=== PATIENT | male | born 1960 | race Two or more races ===

== ENCOUNTER 2016-09-08 17:42 | Inpatient (IN) | payer BC ==
[2016-09-08 19:01] VITALS: BMI 24.2
--- NOTE | 2016-09-08 20:57 | HP ---
CIWA Score - CIWA Score Nausea/Vomitin-No Nausea/No Vomiting Muscle Tremors: 4-Moderate,w/Arms Extend Anxiety: 4-Mod. Anxious/Guarded Agitation: 3 Paroxysmal Sweats: 2 Orientation: 1-Uncertain about Date Tacttile Disturbances: 0-None Auditory Disturbances: 0-None Visual Disturbances: 0-None Headache: 2-Mild CIWA-Ar Total Score: 16 Admission ROS S - HPI Chief Complaint: WITHDRAWAL SYMPTOMS Allergies/Adverse Reactions: Allergies Allergy/AdvReac Type Severity Reaction Status Date / Time No Known Allergies Allergy Verified 09/08/16 20:33 History of Present Illness: 56 Y.O. MAN WITH AN EXTENSIVE HISTORY OF DRUG AND ALCOHOL DEPENDENCE IS SEEKING DETOX. HE HAS BEEN TO REHAB AND DETOX AT OTHER FACILITIES BUT HAS NEVER COMPLETED TREATMENT. THIS IS HIS FIRST ADMISSION TO [facility]. HE IS ALSO ENROLLED IN A MMTP. Exam Limitations: Intoxication - Ebola screening Have you traveled outside of the country in the last 21 days: No Have you had contact with anyone from an Ebola affected area: No Have you been sick,other than usual withdrawal symptoms: No Do you have a fever: No - Review of Systems Constitutional: No Symptoms Reported EENT: reports: Double Vision, Dental Problems (MISSING TEETH) Respiratory: reports: No Symptoms reported Cardiac: reports: No Symptoms Reported GI: reports: No Symptoms Reported : reports: No Symptoms Reported Musculoskeletal: reports: No Symptoms Reported Integumentary: reports: No Symptoms Reported Neuro: reports: Headache Endocrine: reports: No Symptoms Reported Hematology: reports: No Symptoms Reported Psychiatric: reports: Anxious Other Systems: Reviewed and Negative (H/O BIPOLAR & SCHIZOPHRENIA) Patient History - Patient Medical History Hx Anemia: No Hx Asthma: No Hx Chronic Obstructive Pulmonary Disease (COPD): No Hx Cancer: No Hx Cardiac Disorders: No Hx Congestive Heart Failure: No Hx Hypertension: No Hx Hypercholesterolemia: No HX Cerebrovascular Accident: No Hx Seizures: No Hx Diabetes: No Hx Gastrointestinal Disorders: Yes (DYSPEPSIA ) Hx Liver Disease: No Hx Genitourinary Disorders: No Hx Sexually Transmitted Disorders: No Hx Renal Disease (ESRD): No Hx Thyroid Disease: No Hx Human Immunodeficiency Virus (HIV): No Hx Hepatitis C: No Hx Depression: Yes Hx Suicide Attempt: No Hx Bipolar Disorder: Yes Hx Schizophrenia: Yes - Patient Surgical History Past Surgical History: No - PPD History Previous Implant?: Yes Documented Results: Negative w/o proof PPD to be Administered?: Yes - Reproductive History Patient is a Female of Child Bearing Age (11 -55 yrs old): No - Smoking Cessation Smoking history: Current every day smoker Have you smoked in the past 12 months: Yes Aproximately how many cigarettes per day: 20 Hx Chewing Tobacco Use: No Initiated information on smoking cessation: Yes 'Breaking Loose' booklet given: 09/08/16 - Substance & Tx. History Hx Alcohol Use: Yes Hx Substance Use: Yes Substance Use Type: Alcohol, Cocaine Hx Substance Use Treatment: Yes (DETOX AND REHAB ) - Substances Abused Alcohol Route: Oral Frequency: Daily Amount used: vodka 2 pints Age of first use: 23 Date of Last Use: 09/08/16 Marijuana/Hashish Route: Smoking Frequency: Daily Amount used: 1/2 blunt Age of first use: 17 Date of Last Use: 09/08/16 Family Disease History - Family Disease History Family Disease History: Heart Disease: Father, CA: Sister (BR CA-DECASED ) Admission Physical Exam [facility] - Vital Signs Vital Signs: Vital Signs - 24 hr 09/08/16 19:00 Temperature 99.2 F Pulse Rate 89 Respiratory 20 Rate Blood Pressure 104/58 - Physical General Appearance: Yes: Disheveled, Tremorous HEENTM: Yes: Hearing grossly Normal, Normocephalic, Normal Voice Respiratory: Yes: Chest Non-Tender, Lungs Clear, Normal Breath Sounds Neck: Yes: No masses,lesions,Nodules Breast: Yes: Breast Exam Deferred Cardiology: Yes: Regular Rhythm, Regular Rate, S1, S2 Abdominal: Yes: Flat, Soft Genitourinary: Yes: Other (NO COMPLAINTS REPORTED) Back: Yes: Normal Inspection Musculoskeletal: Yes: full range of Motion, Gait Steady Extremities: Yes: Normal Capillary Refill, Normal Inspection, Normal Range of Motion, Non-Tender Neurological: Yes: Alert, Normal Response Integumentary: Yes: Normal Color, Dry, Warm Lymphatic: Yes: Within Normal Limits - Diagnostic (1) Alcohol dependence with uncomplicated withdrawal Current Visit: Yes Status: Chronic (2) Cannabis dependence, uncomplicated Current Visit: Yes Status: Chronic (3) Opioid dependence on agonist therapy Current Visit: Yes Status: Chronic (4) Nicotine dependence Current Visit: Yes Status: Chronic Cleared for Admission [facility] - Detox or Rehab [facility] Level of Care: Medically Managed [facility]ox [facility]ath Alcohol Content Breath Alcohol Content: 0 Urine Drug Screen - Results Drug Screen Negative: No Urine Drug Screen Results: THC-Marijuana, BZO-Benzodiazepines, MTD-Methadone
[2016-09-08] MEDS ORDERED: ACETAMINOPHEN 325 MG TABLET (FP) PO PRN (21:07)
[2016-09-08] MEDS ORDERED: NICOTINE POLACRILEX 4 MG GUM BC PRN (21:07)
[2016-09-08] MEDS ORDERED: P-EPHED 60MG/TRIPROLIDI 2.5MG TABLET PO PRN (21:07)
[2016-09-08] MEDS ORDERED: MAG HYDROX/AL HYDROX/SIMETH 30 ML UNIT-DOSE CUP PO PRN (21:07)
[2016-09-08] MEDS ORDERED: MAGNESIUM HYDROX 2400MG/30ML ORAL SUSPENSION 30 ML CUP PO PRN (21:07)
[2016-09-08] MEDS ORDERED: LOPERAMIDE HCL 2 MG CAPSULE PO PRN (21:07)
[2016-09-08] MEDS ORDERED: hydrOXYzine PAMOATE 50 MG CAPSULE (FP) PO PRN (21:07)
[2016-09-08] MEDS ORDERED: chlordiazePOXIDE HCL 25 MG CAPSULE PO ONE (21:07)
[2016-09-08] MEDS ORDERED: MAGNESIUM CITRATE 300 ML BOTTLE PO PRN (21:07)
[2016-09-08] MEDS ORDERED: guaiFENesin/D-METHORPHAN HB 10 ML UNIT-DOSE CUPS PO PRN (21:07)
[2016-09-08] MEDS ORDERED: IBUPROFEN 400 MG TABLET (FP) PO PRN (21:07)
[2016-09-08] MEDS ORDERED: MENTHOL/PHENOL 1 EACH UD MM PRN (21:07)
[2016-09-08] MEDS ORDERED: chlordiazePOXIDE HCL 25 MG CAPSULE PO PRN (21:07)
[2016-09-08] MEDS: diphenhydrAMINE HCL 50 MG CAPSULE PO PRN (23:24)
[2016-09-08] MEDS: THIAMINE HCL 100 MG TABLET (FP) PO SCH (23:25)
[2016-09-08] MEDS: chlordiazePOXIDE HCL 25 MG CAPSULE PO SCH (23:35)
[2016-09-08 23:39] LABS: URINE APPEARANCE CLEAR; URINE BILIRUBIN NEGATIVE (NEGATIVE); URINE BLOOD NEGATIVE (NEGATIVE); URINE COLOR YELLOW; URINE GLUCOSE (UA) NEGATIVE (NEGATIVE); URINE KETONE NEGATIVE (NEGATIVE); URINE LEUK ESTERASE NEGATIVE (NEGATIVE); URINE NITRITE NEGATIVE (NEGATIVE); URINE PROTEIN NEGATIVE (NEGATIVE); URINE UROBILINOGEN NEGATIVE E.U./dl (0.2-1.0)
[2016-09-09] MEDS: chlordiazePOXIDE HCL 25 MG CAPSULE PO SCH ×4 (05:57→22:15)
[2016-09-09] MEDS ORDERED: METHADONE HCL 40 MG DISPERSABLE TABLET PO SCH (07:45)
[2016-09-09] MEDS ORDERED: METHADONE HCL 10 MG TABLET ONE (09:25)
[2016-09-09] MEDS ORDERED: METHADONE HCL 40 MG DISPERSABLE TABLET ONE (09:25)
[2016-09-09 10:03] LABS: MCH 36.6 pg (25.7-33.7); MCHC 33.9 g/dl (32.0-35.9); MEAN PLT VOLUME 7.6 fl (7.5-11.1); PLATELET COUNT 251 K/MM3 (134-434); RDW 14.6 % (11.9-15.9); WHITE BLOOD COUNT 3.5 K/mm3 (4.0-10.0)
--- NOTE | 2016-09-09 10:10 | PN ---
S CIWA - CIWA Score Nausea/Vomitin-No Nausea/No Vomiting Muscle Tremors: 4-Moderate,w/Arms Extend Anxiety: 3 Agitation: 3 Paroxysmal Sweats: 3 Orientation: 0-Oriented Tacttile Disturbances: 0-None Auditory Disturbances: 0-None Visual Disturbances: 0-None Headache: 0-None Present CIWA-Ar Total Score: 13 S Progress Note (SOAP) Subjective: Anxiety,tremors,sweating,interrupted sleep,restless Objective: 09/09/16 10:09 Vital Signs - 8 hr 09/09/16 09/09/16 09/09/16 03:31 06:22 09:11 Temperature 97.2 F L 98.4 F Pulse Rate 70 75 Respiratory 18 18 18 Rate Blood Pressure 114/69 113/76 Laboratory Tests 09/08/16 09/09/16 23:00 07:00 WBC 3.5 L RBC 3.39 L Hgb 12.4 Hct 36.7 MCV 108.0 H MCHC 33.9 RDW 14.6 Plt Count 251 MPV 7.6 Urine Color Yellow Urine Appearance Clear Urine pH 5.0 Ur Specific [place] 1.025 Urine Protein Negative Urine Glucose (UA) Negative Urine Ketones Negative Urine Blood Negative Urine Nitrite Negative Urine Bilirubin Negative Urine Urobilinogen Negative Ur Leukocyte Esterase Negative labs noted Assessment: 09/09/16 10:10 Withdrawal sx. Plan: Continue detox
[2016-09-09] MEDS: PRENATAL VITAMINS W/ FOLIC ACID TABLET (FP) PO SCH (10:20)
[2016-09-09] MEDS: METHADONE 40 MG, METHADONE 30 MG PO SCH (10:21)
[2016-09-09 10:28] LABS: ALBUMIN 3.4 g/dl (3.4-5.0); ALK PHOS 60 U/L (45-117); ANION GAP 9 (8-16); BILIRUBIN,TOTAL 0.5 mg/dL (0.2-1.0); CALCIUM 8.8 mg/dL (8.5-10.1); CO2 28 mmol/L (21-32); CREATININE 0.8 mg/dL (0.7-1.3); GLUCOSE,RANDOM 93 mg/dL (74-106); SGOT/AST 21 U/L (15-37); SGPT/ALT 21 U/L (12-78)
[2016-09-09] MEDS: NICOTINE 21 MG/24 HOURS TOPICAL PATCH TD SCH (10:53)
--- NOTE | 2016-09-09 16:26 | EKG ---
Test Reason : Blood Pressure : / mmHG Vent. Rate : 089 BPM Atrial Rate : 089 BPM P-R Int : 122 ms QRS Dur : 094 ms QT Int : 376 ms P-R-T Axes : 071 064 058 degrees QTc Int : 457 ms NORMAL SINUS RHYTHM VOLTAGE CRITERIA FOR LEFT VENTRICULAR HYPERTROPHY ABNORMAL ECG NO PREVIOUS ECGS AVAILABLE Confirmed by GENEVA BARBOSA MD ([id number]) on 09/09/2016 4:26:13 PM Referred By: Confirmed By:GENEVA BARBOSA MD
--- NOTE | 2016-09-09 18:08 | CONSULT ---
[facility] Psychiatric Consult - Data Date of interview: 09/09/16 Admission source: [facility] Identifying data: First admision to [facility] for this 56 y/o male seeking detox for alcohol,cocaine and marijuana dependence.Patient is in a common-law relationship,a father of three,domiciled,unemployed and supported on Public Assistance. Substance Abuse History: - Smoking Cessation. Smoking history: Current every day smoker. Have you smoked in the past 12 months: Yes. Aproximately how many cigarettes per day: 20. Hx Chewing Tobacco Use: No. Initiated information on smoking cessation: Yes. 'Breaking Loose' booklet given: 09/08/16. - Substance & Tx. History. Hx Alcohol Use: Yes. Hx Substance Use: Yes. Substance Use Type : Alcohol, Cocaine. Hx Substance Use Treatment: Yes (DETOX AND REHAB ). - Substances Abused. Alcohol. Route: Oral. Frequency: Daily. Amount used: vodka 2 pints. Age of first use: 23. Date of Last Use: 09/08/16. Marijuana /Hashish. Route: Smoking. Frequency: Daily. Amount used: 1/2 blunt. Age of first use: 17. Date of Last Use: 09/08/16. Confirmed by patient. Urine Drug Screen Results: THC-Marijuana, BZO-Benzodiazepines, MTD-Methadone.Noted. Medical History: Patient endorses good general health. Psychiatric History: Patient admits to a remote history of psychiatric hospitalizations (age 12) for behavioural issues.Currently on methadone maintenance (80 mg/day) at the [facility] program in [facility].Mr Saul denies history of suicide attempts. Physical/Sexual Abuse/Trauma History: Patient denies. Mental Status Exam - Mental Status Exam Alert and Oriented to: Time, Place, Person Cognitive Function: Good Patient Appearance: Well Groomed Mood: Hopeful, Euthymic Affect: Appropriate, Normal Range Patient Behavior: Appropriate, Cooperative Speech Pattern: Clear, Appropriate Voice Loudness: Normal Thought Process: Goal Oriented Thought Disorder: Not Present Hallucinations: Denies Suicidal Ideation: Denies Homicidal Ideation: Denies Insight/Judgement: Fair Sleep: Well Appetite: Good Muscle strength/Tone: Normal Gait/Station: Normal Psychiatric Findings - Problem List ([place] 1, 2,3) (1) Alcohol dependence with uncomplicated withdrawal Current Visit: Yes Status: Acute (2) Cannabis dependence, uncomplicated Current Visit: Yes Status: Acute (3) Opioid dependence on agonist therapy Current Visit: Yes Status: Acute (4) Uncomplicated opioid dependence Current Visit: Yes Status: Acute (5) Nicotine dependence Current Visit: Yes Status: Acute - Initial Treatment Plan Initial Treatment Plan: Psychoeducation.Detoxification.Observation.
[2016-09-09] MEDS: THIAMINE HCL 100 MG TABLET (FP) PO SCH (22:14)
[2016-09-09] MEDS: diphenhydrAMINE HCL 50 MG CAPSULE PO PRN (22:15)
[2016-09-10] MEDS ORDERED: METHADONE HCL 10 MG TABLET ONE (01:44)
[2016-09-10] MEDS ORDERED: METHADONE HCL 40 MG DISPERSABLE TABLET ONE (01:44)
[2016-09-10] MEDS: chlordiazePOXIDE HCL 25 MG CAPSULE PO SCH ×3 (05:07→17:16)
[2016-09-10] MEDS: METHADONE 40 MG, METHADONE 30 MG PO SCH (05:07)
[2016-09-10] MEDS: NICOTINE 21 MG/24 HOURS TOPICAL PATCH TD SCH (10:08)
[2016-09-10] MEDS: PRENATAL VITAMINS W/ FOLIC ACID TABLET (FP) PO SCH (10:08)
--- NOTE | 2016-09-10 10:35 | PN ---
S CIWA - CIWA Score Nausea/Vomitin-No Nausea/No Vomiting Muscle Tremors: 4-Moderate,w/Arms Extend Anxiety: 4-Mod. Anxious/Guarded Agitation: 4-Moderately Restless Paroxysmal Sweats: 1-Minimal Palms Moist Orientation: 0-Oriented Tacttile Disturbances: 3-Moderate Itch/Numb/Burn Auditory Disturbances: 0-None Visual Disturbances: 0-None Headache: 2-Mild CIWA-Ar Total Score: 18 BHS COWS - Scale Resting Pulse: 0= CT 80 or Below Sweatin= Chills/Flushing Restless Observation: 3= Extraneous Movement Pupil Size: 2= Moderately Dilated Bone or Joint Aches: 4=Acute Joint/Muscle Pain Runny Nose/ Eye Tearin= Nasal Congestion GI Upset > 30mins: 1= Stomach Cramp Tremor Observation of Outstretched Hands: 2= Slight Tremor Visible Yawning Observation: 2= >3x During Session Anxiety or Irritability: 2=Irritable/Anxious Goose Flesh Skin: 0=Smooth Skin COWS Score: 18 S Progress Note (SOAP) Subjective: ANXIETY,SWEATS,TREMORS, INTERMITTENT SLEEP. Objective: 09/10/16 10:38 Vital Signs Temperature 96.0 F L 09/10/16 09:59 Pulse Rate 61 09/10/16 09:59 Respiratory Rate 18 09/10/16 09:59 Blood Pressure 131/81 09/10/16 09:59 O2 Sat by Pulse Oximetry (%) Laboratory Last Values WBC 3.5 K/mm3 (4.0-10.0) L 09/09/16 07:00 RBC 3.39 M/mm3 (4.00-5.60) L 09/09/16 07:00 Hgb 12.4 GM/dL (11.7-16.9) 09/09/16 07:00 Hct 36.7 % (35.4-49) 09/09/16 07:00 MCV 108.0 fl (80-96) H 09/09/16 07:00 MCHC 33.9 g/dl (32.0-35.9) 09/09/16 07:00 RDW 14.6 % (11.9-15.9) 09/09/16 07:00 Plt Count 251 K/MM3 (134-434) 09/09/16 07:00 MPV 7.6 fl (7.5-11.1) 09/09/16 07:00 Sodium 139 mmol/L (136-145) 09/09/16 07:00 Potassium 4.1 mmol/L (3.5-5.1) 09/09/16 07:00 Chloride 102 mmol/L (98-107) 09/09/16 07:00 Carbon Dioxide 28 mmol/L (21-32) 09/09/16 07:00 Anion Gap 9 (8-16) 09/09/16 07:00 BUN 22 mg/dL (7-18) H 09/09/16 07:00 Creatinine 0.8 mg/dL (0.7-1.3) 09/09/16 07:00 Creat Clearance w eGFR > 60 (>60) 09/09/16 07:00 Random Glucose 93 mg/dL (74-106) 09/09/16 07:00 Calcium 8.8 mg/dL (8.5-10.1) 09/09/16 07:00 Total Bilirubin 0.5 mg/dL (0.2-1.0) 09/09/16 07:00 AST 21 U/L (15-37) 09/09/16 07:00 ALT 21 U/L (12-78) 09/09/16 07:00 Alkaline Phosphatase 60 U/L (45-117) 09/09/16 07:00 Total Protein 7.0 g/dl (6.4-8.2) 09/09/16 07:00 Albumin 3.4 g/dl (3.4-5.0) 09/09/16 07:00 Urine Color Yellow 09/08/16 23:00 Urine Appearance Clear 09/08/16 23:00 Urine pH 5.0 (5.0-8.0) 09/08/16 23:00 Ur Specific [place] 1.025 (1.001-1.035) 09/08/16 23:00 Urine Protein Negative (NEGATIVE) 09/08/16 23:00 Urine Glucose (UA) Negative (NEGATIVE) 09/08/16 23:00 Urine Ketones Negative (NEGATIVE) 09/08/16 23:00 Urine Blood Negative (NEGATIVE) 09/08/16 23:00 Urine Nitrite Negative (NEGATIVE) 09/08/16 23:00 Urine Bilirubin Negative (NEGATIVE) 09/08/16 23:00 Urine Urobilinogen Negative E.U./dl (0.2-1.0) 09/08/16 23:00 Ur Leukocyte Esterase Negative (NEGATIVE) 09/08/16 23:00 RPR Titer Nonreactive (NONREACTIVE) 09/09/16 07:00 Assessment: 09/10/16 10:39 WITHDRAWAL SX Plan: CONTINUE DETOX
[2016-09-10] MEDS: THIAMINE HCL 100 MG TABLET (FP) PO SCH (22:13)
[2016-09-10] MEDS: chlordiazePOXIDE 5 MG CAPSULE PO SCH (22:13)
[2016-09-10] MEDS: diphenhydrAMINE HCL 50 MG CAPSULE PO PRN (22:13)
[2016-09-11] MEDS ORDERED: METHADONE HCL 10 MG TABLET ONE (04:43)
[2016-09-11] MEDS ORDERED: METHADONE HCL 40 MG DISPERSABLE TABLET ONE (04:43)
[2016-09-11] MEDS: chlordiazePOXIDE 5 MG CAPSULE PO SCH ×3 (05:24→17:20)
[2016-09-11] MEDS: METHADONE 40 MG, METHADONE 30 MG PO SCH (05:24)
[2016-09-11] MEDS: PRENATAL VITAMINS W/ FOLIC ACID TABLET (FP) PO SCH (10:08)
[2016-09-11] MEDS: NICOTINE 21 MG/24 HOURS TOPICAL PATCH TD SCH (10:08)
--- NOTE | 2016-09-11 13:49 | PN ---
BHS Progress Note (SOAP) Subjective: Sweating,interrupted sleep,restless Objective: 09/11/16 13:47 Vital Signs - 8 hr 09/11/16 09/11/16 06:24 09:37 Temperature 97.0 F L 95.4 F L Pulse Rate 66 72 Respiratory 16 18 Rate Blood Pressure 105/73 110/73 Laboratory Tests 09/08/16 09/09/16 09/09/16 23:00 07:00 07:00 WBC 3.5 L RBC 3.39 L Hgb 12.4 Hct 36.7 MCV 108.0 H MCHC 33.9 RDW 14.6 Plt Count 251 MPV 7.6 Sodium 139 Potassium 4.1 Chloride 102 Carbon Dioxide 28 Anion Gap 9 BUN 22 H Creatinine 0.8 Creat Clearance w eGFR > 60 Random Glucose 93 Calcium 8.8 Total Bilirubin 0.5 AST 21 ALT 21 Alkaline Phosphatase 60 Total Protein 7.0 Albumin 3.4 Urine Color Yellow Urine Appearance Clear Urine pH 5.0 Ur Specific [place] 1.025 Urine Protein Negative Urine Glucose (UA) Negative Urine Ketones Negative Urine Blood Negative Urine Nitrite Negative Urine Bilirubin Negative Urine Urobilinogen Negative Ur Leukocyte Esterase Negative RPR Titer 09/09/16 07:00 WBC RBC Hgb Hct MCV MCHC RDW Plt Count MPV Sodium Potassium Chloride Carbon Dioxide Anion Gap BUN Creatinine Creat Clearance w eGFR Random Glucose Calcium Total Bilirubin AST ALT Alkaline Phosphatase Total Protein Albumin Urine Color Urine Appearance Urine pH Ur Specific [place] Urine Protein Urine Glucose (UA) Urine Ketones Urine Blood Urine Nitrite Urine Bilirubin Urine Urobilinogen Ur Leukocyte Esterase RPR Titer Nonreactive labs noted Assessment: 09/11/16 13:48 Withdrawal sx. Plan: Continue detox
[2016-09-11] MEDS: diphenhydrAMINE HCL 50 MG CAPSULE PO PRN (22:16)
[2016-09-11] MEDS: chlordiazePOXIDE HCL 10 MG CAPSULE PO SCH (22:16)
[2016-09-11] MEDS: THIAMINE HCL 100 MG TABLET (FP) PO SCH (22:16)
[2016-09-12] MEDS ORDERED: METHADONE HCL 40 MG DISPERSABLE TABLET ONE (04:53)
[2016-09-12] MEDS ORDERED: METHADONE HCL 10 MG TABLET ONE (04:53)
[2016-09-12] MEDS: chlordiazePOXIDE HCL 10 MG CAPSULE PO SCH ×2 (05:46→10:09)
[2016-09-12] MEDS: METHADONE 40 MG, METHADONE 30 MG PO SCH (05:46)
[2016-09-12 09:26] VITALS: BP 106/71; PULSE 73; TEMP 98.1
--- NOTE | 2016-09-12 09:37 | DS ---
[facility] Detox Discharge Summary Admission Date: 09/08/16 Discharge Date: 09/12/16 - History Present History: Alcohol Dependence, Cannabis Dependence, MMTP Pertinent Past History: Denies - Physical Exam Results Vital Signs: Vital Signs Temperature 98.1 F 09/12/16 09:26 Pulse Rate 73 09/12/16 09:26 Respiratory Rate 18 09/12/16 09:26 Blood Pressure 106/71 09/12/16 09:26 O2 Sat by Pulse Oximetry (%) Pertinent Admission Physical Exam Findings: Withdrawal Sx. Laboratory Last Values WBC 3.5 K/mm3 (4.0-10.0) L 09/09/16 07:00 RBC 3.39 M/mm3 (4.00-5.60) L 09/09/16 07:00 Hgb 12.4 GM/dL (11.7-16.9) 09/09/16 07:00 Hct 36.7 % (35.4-49) 09/09/16 07:00 MCV 108.0 fl (80-96) H 09/09/16 07:00 MCHC 33.9 g/dl (32.0-35.9) 09/09/16 07:00 RDW 14.6 % (11.9-15.9) 09/09/16 07:00 Plt Count 251 K/MM3 (134-434) 09/09/16 07:00 MPV 7.6 fl (7.5-11.1) 09/09/16 07:00 Sodium 139 mmol/L (136-145) 09/09/16 07:00 Potassium 4.1 mmol/L (3.5-5.1) 09/09/16 07:00 Chloride 102 mmol/L (98-107) 09/09/16 07:00 Carbon Dioxide 28 mmol/L (21-32) 09/09/16 07:00 Anion Gap 9 (8-16) 09/09/16 07:00 BUN 22 mg/dL (7-18) H 09/09/16 07:00 Creatinine 0.8 mg/dL (0.7-1.3) 09/09/16 07:00 Creat Clearance w eGFR > 60 (>60) 09/09/16 07:00 Random Glucose 93 mg/dL (74-106) 09/09/16 07:00 Calcium 8.8 mg/dL (8.5-10.1) 09/09/16 07:00 Total Bilirubin 0.5 mg/dL (0.2-1.0) 09/09/16 07:00 AST 21 U/L (15-37) 09/09/16 07:00 ALT 21 U/L (12-78) 09/09/16 07:00 Alkaline Phosphatase 60 U/L (45-117) 09/09/16 07:00 Total Protein 7.0 g/dl (6.4-8.2) 09/09/16 07:00 Albumin 3.4 g/dl (3.4-5.0) 09/09/16 07:00 Urine Color Yellow 09/08/16 23:00 Urine Appearance Clear 09/08/16 23:00 Urine pH 5.0 (5.0-8.0) 09/08/16 23:00 Ur Specific [place] 1.025 (1.001-1.035) 09/08/16 23:00 Urine Protein Negative (NEGATIVE) 09/08/16 23:00 Urine Glucose (UA) Negative (NEGATIVE) 09/08/16 23:00 Urine Ketones Negative (NEGATIVE) 09/08/16 23:00 Urine Blood Negative (NEGATIVE) 09/08/16 23:00 Urine Nitrite Negative (NEGATIVE) 09/08/16 23:00 Urine Bilirubin Negative (NEGATIVE) 09/08/16 23:00 Urine Urobilinogen Negative E.U./dl (0.2-1.0) 09/08/16 23:00 Ur Leukocyte Esterase Negative (NEGATIVE) 09/08/16 23:00 RPR Titer Nonreactive (NONREACTIVE) 09/09/16 07:00 labs noted - Treatment Hospital Course: Detox Protocol Followed, Detoxed Safely, Responded well, Discharged Condition Good, Rehab Referral Accepted Patient has Accepted a Rehab Referral to: [facility] - Medication Discharge Medications: Ambulatory Orders NK [No Known Home Medication] 09/08/16 - Diagnosis (1) Alcohol dependence with uncomplicated withdrawal Current Visit: Yes Status: Acute (2) Cannabis dependence, uncomplicated Current Visit: Yes Status: Acute (3) Nicotine dependence Current Visit: Yes Status: Acute Qualifiers: Nicotine product type: cigarettes Substance use status: uncomplicated Qualified Code(s): F17.210 - Nicotine dependence, cigarettes, uncomplicated (4) Opioid dependence on agonist therapy Current Visit: Yes Status: Acute - AMA Did Patient Leave Against Medical Advice: No
[2016-09-12] MEDS: NICOTINE 21 MG/24 HOURS TOPICAL PATCH TD SCH (10:09)
[2016-09-12] MEDS: PRENATAL VITAMINS W/ FOLIC ACID TABLET (FP) PO SCH (10:09)
== END 2016-09-12 11:51 | disposition other institution (70) | DRG 773 ==
LOC: YASAS 17:42 → Y3N 20:53
PROVIDERS: ADMIT Internal Medicine; ATTEND Internal Medicine
PROC: HZ2ZZZZ Detoxification Services for Substance Abuse Treatment (ICD-10-PCS; principal; 2016-09-12)
DX: F11.20 Opioid dependence, uncomplicated (principal); F10.230 Alcohol dependence with withdrawal, uncomplicated; F12.20 Cannabis dependence, uncomplicated; F17.210 Nicotine dependence, cigarettes, uncomplicated
CPT/HCPCS: 36415; 80053; 81003; 85027; 86593; 93005; 93010

== ENCOUNTER 2016-09-12 12:27 | Inpatient (IN) | payer BC ==
[2016-09-12] MEDS ORDERED: NICOTINE POLACRILEX 4 MG GUM BUC PRN (12:46)
[2016-09-12] MEDS ORDERED: MAGNESIUM HYDROX 2400MG/30ML ORAL SUSPENSION 30 ML CUP PO PRN (12:46)
[2016-09-12] MEDS ORDERED: P-EPHED 60MG/TRIPROLIDI 2.5MG TABLET PO PRN (12:46)
[2016-09-12] MEDS ORDERED: ACETAMINOPHEN 325 MG TABLET (FP) PO PRN (12:46)
[2016-09-12] MEDS ORDERED: MAGNESIUM CITRATE 300 ML BOTTLE PO PRN (12:46)
[2016-09-12] MEDS ORDERED: guaiFENesin/D-METHORPHAN HB 10 ML UNIT-DOSE CUPS PO PRN (12:46)
[2016-09-12] MEDS ORDERED: MENTHOL/PHENOL 1 EACH UD MM PRN (12:46)
[2016-09-12] MEDS ORDERED: IBUPROFEN 400 MG TABLET (FP) PO PRN (12:46)
--- NOTE | 2016-09-12 12:49 | HP ---
[facility] Rehab Assess/Revision - Admission History Admitted to Rehab from: [facility] Date of Admission to Rehab: 09/12/16 - Vital signs Vital Signs: Vital Signs - 24 hr 09/13/16 09/13/16 09/13/16 00:34 03:30 06:45 Temperature 97.9 F Pulse Rate 65 Respiratory 18 18 18 Rate Blood Pressure 109/72 - Findings Detox History & Physical reviewed: Yes Concur with findings: Yes
[2016-09-12 13:47] VITALS: BMI 25.1
[2016-09-12] MEDS: diphenhydrAMINE HCL 50 MG CAPSULE PO PRN (21:17)
[2016-09-12] MEDS: THIAMINE HCL 100 MG TABLET (FP) PO SCH (21:17)
[2016-09-13] MEDS ORDERED: METHADONE HCL 10 MG TABLET PO SCH (07:30)
[2016-09-13] MEDS ORDERED: METHADONE 40 MG, METHADONE 30 MG PO SCH (08:07)
[2016-09-13] MEDS ORDERED: METHADONE HCL 10 MG TABLET ONE (08:25)
[2016-09-13] MEDS ORDERED: METHADONE HCL 40 MG DISPERSABLE TABLET ONE (08:26)
[2016-09-13] MEDS: NICOTINE 21 MG/24 HOURS TOPICAL PATCH TD SCH (09:05)
[2016-09-13] MEDS: PRENATAL VITAMINS W/ FOLIC ACID TABLET (FP) PO SCH (09:05)
[2016-09-13 12:17] LABS: HIV 1 & 2 AB NEGATIVE; HIV 1 AGp24 NEGATIVE
--- NOTE | 2016-09-13 13:46 | HP ---
Psychiatrist Admission - Data Date of interview: 09/13/16 Admission source: 3N Identifying data: This is the first 5N inpatient rehabilitation admission for this 56 y/o male who is in a common-law relationship,a father of three , domiciled, unemployed and supported on Public Assistance. Medical History: Patient reports good general health, smokes cigarettes 1PPD. On MMTP 80 mg/daily. Psychiatric History: Patient reports was diagnosed as depression, bipolar and schizophrenia. First psychiatric contact at age of 12 to address hyperactivity, states was dmitted at [facility] for 6 months at age of 13, then attended school at [place]. Reports later was on Seroquel, Trazodone and Xanax. Reports 2 weeks ago was referred to [facility] by his methadone clinic for evaluations, states was anxious and was given "some injection" then relased back home. He reports feels depressed and sad. Physical/Sexual Abuse/Trauma History: Denies history of sexual, physical and verbal abuse. Vital Signs: Vital Signs - 24 hr 09/13/16 09/13/16 09/13/16 00:34 03:30 06:45 Temperature 97.9 F Pulse Rate 65 Respiratory 18 18 18 Rate Blood Pressure 109/72 Allergies/Adverse Reactions: Allergies Allergy/AdvReac Type Severity Reaction Status Date / Time No Known Allergies Allergy Verified 09/08/16 20:33 Date of last physical exam: 09/08/16 Concur with the findings of this exam: Yes - Substance Abuse/Tx History Hx Alcohol Use: Yes (2 pints of vodka daily) Hx Substance Use: Yes Substance Use Type: Heroin (on and off), Marijuana (daily use) Hx Substance Use Treatment: Yes - Admission Criteria Previous failed treatment: Yes Poor recovery environment: Yes Comorbidities: Yes Lacks judgement: Yes Mental Status Exam - Mental Status Exam Alert and Oriented to: Time, Place, Person Cognitive Function: Good Patient Appearance: Well Groomed Mood: Depressed, Sad Affect: Appropriate, Mood Congruent Patient Behavior: Appropriate, Cooperative Speech Pattern: Clear, Appropriate Voice Loudness: Normal Thought Process: Intact, Goal Oriented Thought Disorder: Not Present Hallucinations: Denies Suicidal Ideation: Denies Homicidal Ideation: Denies Insight/Judgement: Fair Sleep: Fair Appetite: Fair Muscle strength/Tone: Normal Gait/Station: Normal Psychiatric Findings - Problem List ([place] 1, 2,3) (1) Cannabis dependence, uncomplicated Current Visit: No Status: Acute (2) Nicotine dependence Current Visit: No Status: Acute Qualifiers: Nicotine product type: cigarettes Substance use status: uncomplicated Qualified Code(s): F17.210 - Nicotine dependence, cigarettes, uncomplicated (3) Opioid dependence on agonist therapy Current Visit: No Status: Acute (4) Alcohol dependence Current Visit: Yes Status: Acute (5) MDD (major depressive disorder) Current Visit: Yes Status: Acute - Initial Treatment Plan Initial Treatment Plan: continue Trazodone, add Lexapro 10 mg po daily, Seroquel 25 mg po hs, monitor progress as needed.
[2016-09-13] MEDS: QUEtiapine FUMARATE 25 MG TABLET (FP) PO SCH (21:07)
[2016-09-13] MEDS: THIAMINE HCL 100 MG TABLET (FP) PO SCH (21:07)
[2016-09-13] MEDS: traZODone HCL 50 MG TABLET (FP) PO SCH (21:07)
[2016-09-13] MEDS: MAG HYDROX/AL HYDROX/SIMETH 30 ML UNIT-DOSE CUP PO PRN (21:22)
[2016-09-14] MEDS ORDERED: METHADONE 40 MG, METHADONE 30 MG PO SCH (06:00)
[2016-09-14] MEDS ORDERED: METHADONE HCL 10 MG TABLET ONE (06:04)
[2016-09-14] MEDS ORDERED: METHADONE HCL 40 MG DISPERSABLE TABLET ONE (06:05)
[2016-09-14] MEDS: METHADONE 40 MG, METHADONE 30 MG PO SCH (06:32)
[2016-09-14] MEDS: LOPERAMIDE HCL 2 MG CAPSULE PO PRN ×2 (06:34→12:40)
[2016-09-14] MEDS: ESCITALOPRAM OXALATE 10 MG TABLET (FP) PO SCH (09:52)
[2016-09-14] MEDS: PRENATAL VITAMINS W/ FOLIC ACID TABLET (FP) PO SCH (09:52)
[2016-09-14] MEDS: NICOTINE 21 MG/24 HOURS TOPICAL PATCH TD SCH (09:52)
[2016-09-14] MEDS ORDERED: BISMUTH SUBSALICYLATE 262 MG/15 ML BTL PO ONE (11:49)
[2016-09-14] MEDS: BISMUTH SUBSALICYLATE 262 MG/15 ML BTL PO PRN (17:31)
[2016-09-14] MEDS: QUEtiapine FUMARATE 25 MG TABLET (FP) PO SCH (21:22)
[2016-09-14] MEDS: traZODone HCL 50 MG TABLET (FP) PO SCH (21:22)
[2016-09-14] MEDS: THIAMINE HCL 100 MG TABLET (FP) PO SCH (21:22)
[2016-09-15] MEDS ORDERED: METHADONE HCL 10 MG TABLET ONE (03:20)
[2016-09-15] MEDS ORDERED: METHADONE HCL 40 MG DISPERSABLE TABLET ONE (03:21)
[2016-09-15] MEDS: METHADONE 40 MG, METHADONE 30 MG PO SCH (06:21)
[2016-09-15] MEDS: BISMUTH SUBSALICYLATE 262 MG/15 ML BTL PO PRN ×2 (06:24→17:01)
[2016-09-15] MEDS: PRENATAL VITAMINS W/ FOLIC ACID TABLET (FP) PO SCH (10:09)
[2016-09-15] MEDS: ESCITALOPRAM OXALATE 10 MG TABLET (FP) PO SCH (10:09)
[2016-09-15] MEDS: NICOTINE 21 MG/24 HOURS TOPICAL PATCH TD SCH (10:10)
[2016-09-15] MEDS: LOPERAMIDE HCL 2 MG CAPSULE PO PRN (10:37)
--- NOTE | 2016-09-15 13:09 | PN ---
BHS Progress Note Note: Vistaril 50 mg po q 4 hrs added due to patient's increased anxiety.
[2016-09-15] MEDS: THIAMINE HCL 100 MG TABLET (FP) PO SCH (21:15)
[2016-09-15] MEDS: QUEtiapine FUMARATE 25 MG TABLET (FP) PO SCH (21:16)
[2016-09-15] MEDS: traZODone HCL 50 MG TABLET (FP) PO SCH (21:16)
[2016-09-16] MEDS ORDERED: METHADONE HCL 10 MG TABLET ONE (06:02)
[2016-09-16] MEDS ORDERED: METHADONE HCL 40 MG DISPERSABLE TABLET ONE (06:03)
[2016-09-16] MEDS: METHADONE 40 MG, METHADONE 30 MG PO SCH (06:18)
[2016-09-16] MEDS: BISMUTH SUBSALICYLATE 262 MG/15 ML BTL PO PRN ×2 (06:42→21:29)
[2016-09-16] MEDS: hydrOXYzine PAMOATE 50 MG CAPSULE (FP) PO PRN (10:11)
[2016-09-16] MEDS: ESCITALOPRAM OXALATE 10 MG TABLET (FP) PO SCH (10:11)
[2016-09-16] MEDS: PRENATAL VITAMINS W/ FOLIC ACID TABLET (FP) PO SCH (10:11)
[2016-09-16] MEDS: NICOTINE 21 MG/24 HOURS TOPICAL PATCH TD SCH (10:12)
[2016-09-16] MEDS: LOPERAMIDE HCL 2 MG CAPSULE PO PRN (17:25)
[2016-09-16] MEDS: QUEtiapine FUMARATE 25 MG TABLET (FP) PO SCH (21:29)
[2016-09-16] MEDS: THIAMINE HCL 100 MG TABLET (FP) PO SCH (21:29)
[2016-09-16] MEDS: traZODone HCL 50 MG TABLET (FP) PO SCH (21:29)
[2016-09-17] MEDS ORDERED: METHADONE HCL 40 MG DISPERSABLE TABLET ONE (03:10)
[2016-09-17] MEDS ORDERED: METHADONE HCL 10 MG TABLET ONE (03:10)
[2016-09-17] MEDS: METHADONE 40 MG, METHADONE 30 MG PO SCH (06:07)
[2016-09-17] MEDS: NICOTINE 21 MG/24 HOURS TOPICAL PATCH TD SCH (10:04)
[2016-09-17] MEDS: ESCITALOPRAM OXALATE 10 MG TABLET (FP) PO SCH (10:04)
[2016-09-17] MEDS: PRENATAL VITAMINS W/ FOLIC ACID TABLET (FP) PO SCH (10:04)
--- NOTE | 2016-09-17 10:56 | PN ---
BHS Progress Note Note: having diarrhea with loose bowel movement,stool for c diff,did not want to be on clifford diet
[2016-09-17] MEDS: THIAMINE HCL 100 MG TABLET (FP) PO SCH (21:09)
[2016-09-17] MEDS: QUEtiapine FUMARATE 25 MG TABLET (FP) PO SCH (21:10)
[2016-09-17] MEDS: traZODone HCL 50 MG TABLET (FP) PO SCH (21:10)
[2016-09-17] MEDS: BISMUTH SUBSALICYLATE 262 MG/15 ML BTL PO PRN (21:11)
[2016-09-18] MEDS ORDERED: METHADONE HCL 10 MG TABLET ONE (06:05)
[2016-09-18] MEDS ORDERED: METHADONE HCL 40 MG DISPERSABLE TABLET ONE (06:05)
[2016-09-18] MEDS: METHADONE 40 MG, METHADONE 30 MG PO SCH (06:36)
[2016-09-18] MEDS: ESCITALOPRAM OXALATE 10 MG TABLET (FP) PO SCH (10:02)
[2016-09-18] MEDS: NICOTINE 21 MG/24 HOURS TOPICAL PATCH TD SCH (10:02)
[2016-09-18] MEDS: PRENATAL VITAMINS W/ FOLIC ACID TABLET (FP) PO SCH (10:02)
[2016-09-18] MEDS: BISMUTH SUBSALICYLATE 262 MG/15 ML BTL PO PRN (10:04)
[2016-09-18] MEDS: THIAMINE HCL 100 MG TABLET (FP) PO SCH (21:24)
[2016-09-18] MEDS: QUEtiapine FUMARATE 25 MG TABLET (FP) PO SCH (21:24)
[2016-09-18] MEDS: traZODone HCL 50 MG TABLET (FP) PO SCH (21:24)
[2016-09-19] MEDS ORDERED: METHADONE HCL 10 MG TABLET ONE (06:21)
[2016-09-19] MEDS ORDERED: METHADONE HCL 40 MG DISPERSABLE TABLET ONE (06:22)
[2016-09-19] MEDS: METHADONE 40 MG, METHADONE 30 MG PO SCH (06:28)
[2016-09-19] MEDS: hydrOXYzine PAMOATE 50 MG CAPSULE (FP) PO PRN (06:30)
[2016-09-19] MEDS: PRENATAL VITAMINS W/ FOLIC ACID TABLET (FP) PO SCH (10:01)
[2016-09-19] MEDS: ESCITALOPRAM OXALATE 10 MG TABLET (FP) PO SCH (10:01)
[2016-09-19] MEDS: NICOTINE 21 MG/24 HOURS TOPICAL PATCH TD SCH (10:02)
[2016-09-19] MEDS: BISMUTH SUBSALICYLATE 262 MG/15 ML BTL PO PRN (10:02)
[2016-09-19] MEDS: traZODone HCL 50 MG TABLET (FP) PO SCH (21:01)
[2016-09-19] MEDS: QUEtiapine FUMARATE 25 MG TABLET (FP) PO SCH (21:01)
[2016-09-19] MEDS: diphenhydrAMINE HCL 50 MG CAPSULE PO PRN (21:02)
[2016-09-19] MEDS: THIAMINE HCL 100 MG TABLET (FP) PO SCH (21:02)
[2016-09-20] MEDS ORDERED: METHADONE HCL 40 MG DISPERSABLE TABLET PO SCH (06:45)
[2016-09-20] MEDS ORDERED: METHADONE HCL 10 MG TABLET ONE (06:49)
[2016-09-20] MEDS ORDERED: METHADONE HCL 40 MG DISPERSABLE TABLET ONE (06:49)
[2016-09-20] MEDS: METHADONE 40 MG, METHADONE 30 MG PO SCH (06:58)
[2016-09-20] MEDS: PRENATAL VITAMINS W/ FOLIC ACID TABLET (FP) PO SCH (10:24)
[2016-09-20] MEDS: ESCITALOPRAM OXALATE 10 MG TABLET (FP) PO SCH (10:24)
[2016-09-20] MEDS: NICOTINE 21 MG/24 HOURS TOPICAL PATCH TD SCH (10:25)
[2016-09-20] MEDS: CYPROHEPTADINE HCL 4 MG TABLET PO SCH (17:10)
[2016-09-20] MEDS: traZODone HCL 50 MG TABLET (FP) PO SCH (21:07)
[2016-09-20] MEDS: QUEtiapine FUMARATE 25 MG TABLET (FP) PO SCH (21:07)
[2016-09-20] MEDS: THIAMINE HCL 100 MG TABLET (FP) PO SCH (21:07)
[2016-09-20] MEDS: diphenhydrAMINE HCL 50 MG CAPSULE PO PRN (21:07)
[2016-09-21] MEDS ORDERED: METHADONE HCL 10 MG TABLET ONE (04:30)
[2016-09-21] MEDS ORDERED: METHADONE HCL 40 MG DISPERSABLE TABLET ONE (04:31)
[2016-09-21] MEDS: CYPROHEPTADINE HCL 4 MG TABLET PO SCH ×2 (06:09→17:01)
[2016-09-21] MEDS: METHADONE 40 MG, METHADONE 30 MG PO SCH (06:09)
[2016-09-21] MEDS: hydrOXYzine PAMOATE 50 MG CAPSULE (FP) PO PRN (08:32)
[2016-09-21] MEDS: ESCITALOPRAM OXALATE 10 MG TABLET (FP) PO SCH (10:23)
[2016-09-21] MEDS: NICOTINE 21 MG/24 HOURS TOPICAL PATCH TD SCH (10:23)
[2016-09-21] MEDS: PRENATAL VITAMINS W/ FOLIC ACID TABLET (FP) PO SCH (10:23)
[2016-09-21] MEDS: traZODone HCL 50 MG TABLET (FP) PO SCH (21:07)
[2016-09-21] MEDS: diphenhydrAMINE HCL 50 MG CAPSULE PO PRN (21:08)
[2016-09-21] MEDS: QUEtiapine FUMARATE 25 MG TABLET (FP) PO SCH (21:08)
[2016-09-21] MEDS: THIAMINE HCL 100 MG TABLET (FP) PO SCH (21:08)
[2016-09-22] MEDS ORDERED: METHADONE HCL 10 MG TABLET ONE (03:25)
[2016-09-22] MEDS ORDERED: METHADONE HCL 40 MG DISPERSABLE TABLET ONE (03:26)
[2016-09-22] MEDS: METHADONE 40 MG, METHADONE 30 MG PO SCH (06:13)
[2016-09-22] MEDS: CYPROHEPTADINE HCL 4 MG TABLET PO SCH ×2 (06:13→17:00)
[2016-09-22] MEDS: hydrOXYzine PAMOATE 50 MG CAPSULE (FP) PO PRN ×2 (06:14→13:14)
[2016-09-22] MEDS: ESCITALOPRAM OXALATE 10 MG TABLET (FP) PO SCH (10:22)
[2016-09-22] MEDS: PRENATAL VITAMINS W/ FOLIC ACID TABLET (FP) PO SCH (10:23)
[2016-09-22] MEDS: NICOTINE 21 MG/24 HOURS TOPICAL PATCH TD SCH (10:23)
--- NOTE | 2016-09-22 13:17 | PN ---
Psychiatric Progress Note Vital Signs: Vital Signs Period Temp Pulse Resp BP Sys/Mcallister Pulse Ox Last 24 Hr 97.8 F 57 18-18 128/86 Date of Session: 09/22/16 Chief Complaint:: "anxious" HPI: Patient is addressing alcohol,cannabisss, nicotine dependence comrobid MDD. Current Medications: Active Medications Generic Name Dose Route Start Last Admin Trade Name Freq PRN Reason Stop Dose Admin Acetaminophen 650 mg 09/12/16 12:46 Tylenol - PO Q4H PRN FEVER OR PAIN Al Hydroxide/Mg Hydroxide 30 ml 09/12/16 12:46 09/13/16 21:22 Mylanta Oral Suspension - PO 30 ml Q6H PRN Administration DYSPEPSIA Bismuth Subsalicylate 30 ml 09/14/16 11:49 09/19/16 10:02 Pepto-Bismol Liquid - PO 30 ml BID PRN Administration DIARRHEA Cyproheptadine HCl 4 mg 09/20/16 16:30 09/22/16 06:13 Periactin - PO 4 mg BIDAC TREMAYNE Administration Diphenhydramine HCl 50 mg 09/12/16 12:46 09/21/16 21:08 Benadryl - PO 50 mg HSMR1 PRN Administration FOR ITCHING Escitalopram Oxalate 10 mg 09/14/16 10:00 09/22/16 10:22 Lexapro - PO 10 mg DAILY TREMAYNE Administration Eucalyptus/Menthol/Phenol/Sorbitol 1 each 09/12/16 12:46 Cepastat Lozenge - MM Q4H PRN SORE THROAT Guaifenesin 10 ml 09/12/16 12:46 Robitussin Dm - PO Q6H PRN COUGH Hydroxyzine Pamoate 50 mg 09/15/16 13:07 09/22/16 13:14 Vistaril - PO 50 mg Q4H PRN Administration ANXIETY Ibuprofen 400 mg 09/12/16 12:46 Motrin - PO Q6H PRN PAIN Loperamide HCl 4 mg 09/12/16 12:46 09/16/16 17:25 Imodium - PO 4 mg Q6H PRN Administration DIARRHEA Magnesium Hydroxide 30 ml 09/12/16 12:46 Milk Of Magnesia - PO DAILY PRN CONSTIPATION Methadone HCl 40 mg/ Methadone 70 mg 09/20/16 07:00 09/22/16 06:13 HCl 30 mg PO 70 mg DAILY@0600 TREMAYNE Administration Nicotine 21 mg 09/13/16 10:00 09/22/16 10:23 Nicoderm Patch - TD Not Given DAILY TREMAYNE Nicotine Polacrilex 4 mg 09/12/16 12:46 Nicorette Gum - BUC Q2H PRN NICOTINE REPLACEMENT RX Multivit/Folic Acid/Iron 1 tab 09/13/16 10:00 09/22/16 10:23 Vitamins (Sjr) - PO 1 tab DAILY TREMAYNE Administration Pseudoephedrine/Triprolidine 1 combo 09/12/16 12:46 Actifed - PO TID PRN NASAL CONGESTION Quetiapine Fumarate 25 mg 09/13/16 22:00 09/21/16 21:08 Seroquel - PO 25 mg HS TREMAYNE Administration Thiamine HCl 100 mg 09/12/16 22:00 09/21/16 21:08 Vitamin B1 - PO 100 mg HS TREMAYNE Administration Trazodone HCl 50 mg 09/13/16 22:00 09/21/16 21:07 Desyrel - PO 50 mg HS TREMAYNE Administration Medication(s) Change(s): vistaril prn. Current Side Effect: No Lab tests ordered: No Lab tests reviewed: Yes Provider note:: Patient reports has victorino feeling very anxious, restless, destructful while in groups. Patient is gaining insights into his addiction and identify that his life had become unmanangeable, he continued using despite the negative consequences (lossing his job and not be able to maintian his housing).Supportive therapy provided. Encouraged patient to take Vistaril PRN. Total face to face time:: 35 Mental Status Exam - Mental Status Exam Alert and Oriented to: Time, Place, Person Cognitive Function: Good Patient Appearance: Well Groomed Mood: Anxious Affect: Appropriate, Mood Congruent Patient Behavior: Appropriate, Cooperative Speech Pattern: Clear, Appropriate Voice Loudness: Normal Thought Process: Goal Oriented Thought Disorder: Not Present Hallucinations: Denies Suicidal Ideation: Denies Homicidal Ideation: Denies Insight/Judgement: Fair Sleep: Fair Appetite: Fair Muscle strength/Tone: Normal Gait/Station: Normal Psychiatric Treatment Plan - Problem List (1) Cannabis dependence, uncomplicated Current Visit: No (2) Nicotine dependence Current Visit: No Qualifiers: Nicotine product type: cigarettes Substance use status: uncomplicated Qualified Code(s): F17.210 - Nicotine dependence, cigarettes, uncomplicated (3) Opioid dependence on agonist therapy Current Visit: No (4) Alcohol dependence Current Visit: Yes (5) MDD (major depressive disorder) Current Visit: Yes
[2016-09-22] MEDS: QUEtiapine FUMARATE 25 MG TABLET (FP) PO SCH (21:13)
[2016-09-22] MEDS: THIAMINE HCL 100 MG TABLET (FP) PO SCH (21:13)
[2016-09-22] MEDS: traZODone HCL 50 MG TABLET (FP) PO SCH (21:13)
[2016-09-22] MEDS: diphenhydrAMINE HCL 50 MG CAPSULE PO PRN (21:19)
[2016-09-23] MEDS ORDERED: METHADONE HCL 10 MG TABLET ONE (03:21)
[2016-09-23] MEDS ORDERED: METHADONE HCL 40 MG DISPERSABLE TABLET ONE (03:21)
[2016-09-23] MEDS: hydrOXYzine PAMOATE 50 MG CAPSULE (FP) PO PRN ×2 (06:08→10:02)
[2016-09-23] MEDS: CYPROHEPTADINE HCL 4 MG TABLET PO SCH ×2 (06:08→16:39)
[2016-09-23] MEDS: METHADONE 40 MG, METHADONE 30 MG PO SCH (06:08)
[2016-09-23] MEDS: PRENATAL VITAMINS W/ FOLIC ACID TABLET (FP) PO SCH (10:01)
[2016-09-23] MEDS: ESCITALOPRAM OXALATE 10 MG TABLET (FP) PO SCH (10:01)
[2016-09-23] MEDS: NICOTINE 21 MG/24 HOURS TOPICAL PATCH TD SCH (10:02)
[2016-09-23] MEDS: traZODone HCL 50 MG TABLET (FP) PO SCH (21:15)
[2016-09-23] MEDS: QUEtiapine FUMARATE 25 MG TABLET (FP) PO SCH (21:15)
[2016-09-23] MEDS: THIAMINE HCL 100 MG TABLET (FP) PO SCH (21:15)
[2016-09-23] MEDS: diphenhydrAMINE HCL 50 MG CAPSULE PO PRN (21:16)
[2016-09-24] MEDS ORDERED: METHADONE HCL 40 MG DISPERSABLE TABLET ONE (03:42)
[2016-09-24] MEDS ORDERED: METHADONE HCL 10 MG TABLET ONE (03:42)
[2016-09-24] MEDS: METHADONE 40 MG, METHADONE 30 MG PO SCH (06:06)
[2016-09-24] MEDS: CYPROHEPTADINE HCL 4 MG TABLET PO SCH ×2 (06:06→16:45)
[2016-09-24] MEDS: hydrOXYzine PAMOATE 50 MG CAPSULE (FP) PO PRN (07:49)
[2016-09-24] MEDS: ESCITALOPRAM OXALATE 10 MG TABLET (FP) PO SCH (09:56)
[2016-09-24] MEDS: NICOTINE 21 MG/24 HOURS TOPICAL PATCH TD SCH (09:57)
[2016-09-24] MEDS: PRENATAL VITAMINS W/ FOLIC ACID TABLET (FP) PO SCH (09:57)
[2016-09-24] MEDS: diphenhydrAMINE HCL 50 MG CAPSULE PO PRN (21:17)
[2016-09-24] MEDS: QUEtiapine FUMARATE 25 MG TABLET (FP) PO SCH (21:17)
[2016-09-24] MEDS: traZODone HCL 50 MG TABLET (FP) PO SCH (21:17)
[2016-09-24] MEDS: THIAMINE HCL 100 MG TABLET (FP) PO SCH (21:17)
[2016-09-25] MEDS: hydrOXYzine PAMOATE 50 MG CAPSULE (FP) PO PRN ×2 (03:43→11:12)
[2016-09-25] MEDS: MAG HYDROX/AL HYDROX/SIMETH 30 ML UNIT-DOSE CUP PO PRN ×2 (03:43→16:54)
[2016-09-25] MEDS ORDERED: METHADONE HCL 40 MG DISPERSABLE TABLET ONE (04:29)
[2016-09-25] MEDS ORDERED: METHADONE HCL 10 MG TABLET ONE (04:29)
[2016-09-25] MEDS: METHADONE 40 MG, METHADONE 30 MG PO SCH (05:58)
[2016-09-25] MEDS: CYPROHEPTADINE HCL 4 MG TABLET PO SCH ×2 (06:39→16:54)
[2016-09-25] MEDS: NICOTINE 21 MG/24 HOURS TOPICAL PATCH TD SCH (09:55)
[2016-09-25] MEDS: PRENATAL VITAMINS W/ FOLIC ACID TABLET (FP) PO SCH (09:55)
[2016-09-25] MEDS: ESCITALOPRAM OXALATE 10 MG TABLET (FP) PO SCH (09:55)
[2016-09-25] MEDS: THIAMINE HCL 100 MG TABLET (FP) PO SCH (21:27)
[2016-09-25] MEDS: traZODone HCL 50 MG TABLET (FP) PO SCH (21:28)
[2016-09-25] MEDS: QUEtiapine FUMARATE 25 MG TABLET (FP) PO SCH (21:28)
[2016-09-25] MEDS: diphenhydrAMINE HCL 50 MG CAPSULE PO PRN (21:28)
[2016-09-26] MEDS ORDERED: METHADONE HCL 10 MG TABLET ONE (05:11)
[2016-09-26] MEDS ORDERED: METHADONE HCL 40 MG DISPERSABLE TABLET ONE (05:12)
[2016-09-26] MEDS: METHADONE 40 MG, METHADONE 30 MG PO SCH (06:07)
[2016-09-26] MEDS: CYPROHEPTADINE HCL 4 MG TABLET PO SCH ×2 (06:07→16:39)
[2016-09-26] MEDS: NICOTINE 21 MG/24 HOURS TOPICAL PATCH TD SCH (10:02)
[2016-09-26] MEDS: ESCITALOPRAM OXALATE 10 MG TABLET (FP) PO SCH (10:02)
[2016-09-26] MEDS: PRENATAL VITAMINS W/ FOLIC ACID TABLET (FP) PO SCH (10:02)
[2016-09-26] MEDS: diphenhydrAMINE HCL 50 MG CAPSULE PO PRN (21:20)
[2016-09-26] MEDS: traZODone HCL 50 MG TABLET (FP) PO SCH (21:20)
[2016-09-26] MEDS: QUEtiapine FUMARATE 25 MG TABLET (FP) PO SCH (21:20)
[2016-09-26] MEDS: THIAMINE HCL 100 MG TABLET (FP) PO SCH (21:21)
[2016-09-27] MEDS ORDERED: METHADONE HCL 10 MG TABLET ONE (06:06)
[2016-09-27] MEDS ORDERED: METHADONE HCL 40 MG DISPERSABLE TABLET ONE (06:06)
[2016-09-27] MEDS: METHADONE 40 MG, METHADONE 30 MG PO SCH (06:07)
[2016-09-27] MEDS: CYPROHEPTADINE HCL 4 MG TABLET PO SCH ×2 (06:07→17:25)
[2016-09-27] MEDS: hydrOXYzine PAMOATE 50 MG CAPSULE (FP) PO PRN (06:08)
[2016-09-27] MEDS: ESCITALOPRAM OXALATE 10 MG TABLET (FP) PO SCH (09:48)
[2016-09-27] MEDS: PRENATAL VITAMINS W/ FOLIC ACID TABLET (FP) PO SCH (09:48)
[2016-09-27] MEDS: NICOTINE 21 MG/24 HOURS TOPICAL PATCH TD SCH (09:48)
--- NOTE | 2016-09-27 15:05 | PN ---
Psychiatric Progress Note Vital Signs: Vital Signs Period Temp Pulse Resp BP Sys/Mcallister Pulse Ox Last 24 Hr 98.2 F 96 18-18 107/74 Date of Session: 09/27/16 Chief Complaint:: Discharge Note HPI: Patient addressing Alcohol and Cannabis Dependence comorbid with Opoid Dependence on Agonist Therapy, Nicotine Dependence and MDD Current Medications: Active Medications Generic Name Dose Route Start Last Admin Trade Name Freq PRN Reason Stop Dose Admin Acetaminophen 650 mg 09/12/16 12:46 09/23/16 15:15 Tylenol - PO 650 mg Q4H PRN Administration FEVER OR PAIN Al Hydroxide/Mg Hydroxide 30 ml 09/12/16 12:46 09/25/16 16:54 Mylanta Oral Suspension - PO 30 ml Q6H PRN Administration DYSPEPSIA Bismuth Subsalicylate 30 ml 09/14/16 11:49 09/19/16 10:02 Pepto-Bismol Liquid - PO 30 ml BID PRN Administration DIARRHEA Cyproheptadine HCl 4 mg 09/20/16 16:30 09/27/16 06:07 Periactin - PO 4 mg BIDAC TREMAYNE Administration Diphenhydramine HCl 50 mg 09/12/16 12:46 09/26/16 21:20 Benadryl - PO 50 mg HSMR1 PRN Administration FOR ITCHING Escitalopram Oxalate 10 mg 09/14/16 10:00 09/27/16 09:48 Lexapro - PO 10 mg DAILY TREMAYNE Administration Eucalyptus/Menthol/Phenol/Sorbitol 1 each 09/12/16 12:46 Cepastat Lozenge - MM Q4H PRN SORE THROAT Guaifenesin 10 ml 09/12/16 12:46 Robitussin Dm - PO Q6H PRN COUGH Hydroxyzine Pamoate 50 mg 09/15/16 13:07 09/27/16 06:08 Vistaril - PO 50 mg Q4H PRN Administration ANXIETY Ibuprofen 400 mg 09/12/16 12:46 Motrin - PO Q6H PRN PAIN Loperamide HCl 4 mg 09/12/16 12:46 09/16/16 17:25 Imodium - PO 4 mg Q6H PRN Administration DIARRHEA Magnesium Hydroxide 30 ml 09/12/16 12:46 Milk Of Magnesia - PO DAILY PRN CONSTIPATION Methadone HCl 40 mg/ Methadone 70 mg 09/28/16 06:00 HCl 30 mg PO 10/04/16 05:59 DAILY@0600 TREMAYNE Nicotine 21 mg 09/13/16 10:00 09/27/16 09:48 Nicoderm Patch - TD Not Given DAILY TREMAYNE Nicotine Polacrilex 4 mg 09/12/16 12:46 Nicorette Gum - BUC Q2H PRN NICOTINE REPLACEMENT RX Multivit/Folic Acid/Iron 1 tab 09/13/16 10:00 09/27/16 09:48 Vitamins (Sjr) - PO 1 tab DAILY TREMAYNE Administration Pseudoephedrine/Triprolidine 1 combo 09/12/16 12:46 Actifed - PO TID PRN NASAL CONGESTION Quetiapine Fumarate 25 mg 09/13/16 22:00 09/26/16 21:20 Seroquel - PO 25 mg HS TREMAYNE Administration Thiamine HCl 100 mg 09/12/16 22:00 09/26/16 21:21 Vitamin B1 - PO 100 mg HS TREMAYNE Administration Trazodone HCl 50 mg 09/13/16 22:00 09/26/16 21:20 Desyrel - PO 50 mg HS TREMAYNE Administration Current Side Effect: No Lab tests ordered: Yes Lab tests reviewed: Yes Provider note:: Patient will be discharged on 09/29/15. He has met his treatment goals and will continue to address his issues in outpatient treament at [facility]. 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 Scripts fror 30 days supply of these medications will be electronically transmitted to [facility] at [address] [place] [address]. He is stable for discharge on 09/28/16 Total face to face time:: 35 Psychiatric Treatment Plan - Problem List (1) Alcohol dependence Current Visit: Yes (2) Cannabis dependence, uncomplicated Current Visit: No (3) Opioid dependence on agonist therapy Current Visit: No (4) Nicotine dependence Current Visit: No Qualifiers: Nicotine product type: cigarettes Substance use status: uncomplicated Qualified Code(s): F17.210 - Nicotine dependence, cigarettes, uncomplicated (5) MDD (major depressive disorder) Current Visit: Yes Initial treatment plan: Patient will be discharged tomorrow and referred to [facility] for outpatient treatmant
[2016-09-27] MEDS: QUEtiapine FUMARATE 25 MG TABLET (FP) PO SCH (21:27)
[2016-09-27] MEDS: THIAMINE HCL 100 MG TABLET (FP) PO SCH (21:27)
[2016-09-27] MEDS: traZODone HCL 50 MG TABLET (FP) PO SCH (21:28)
[2016-09-27] MEDS: diphenhydrAMINE HCL 50 MG CAPSULE PO PRN (21:28)
[2016-09-28] MEDS ORDERED: METHADONE HCL 40 MG DISPERSABLE TABLET ONE (04:52)
[2016-09-28] MEDS ORDERED: METHADONE HCL 10 MG TABLET ONE (04:52)
[2016-09-28] MEDS ORDERED: METHADONE 40 MG, METHADONE 30 MG PO SCH (06:00)
[2016-09-28] MEDS ORDERED: METHADONE HCL 10 MG TABLET PO SCH (06:00)
[2016-09-28] MEDS: CYPROHEPTADINE HCL 4 MG TABLET PO SCH (06:40)
[2016-09-28 06:41] VITALS: BP 114/73; PULSE 61; TEMP 97.9
[2016-09-28] MEDS: PRENATAL VITAMINS W/ FOLIC ACID TABLET (FP) PO SCH (10:01)
[2016-09-28] MEDS: NICOTINE 21 MG/24 HOURS TOPICAL PATCH TD SCH (10:01)
[2016-09-28] MEDS: ESCITALOPRAM OXALATE 10 MG TABLET (FP) PO SCH (10:01)
== END 2016-09-28 10:40 | disposition home or self-care (01) | DRG 772 ==
LOC: YASAS 12:27 → Y5N 12:28
PROVIDERS: ADMIT Psychiatry & Neurology Psychiatry; ATTEND Psychiatry & Neurology Psychiatry
PROC: HZ42ZZZ Group Counseling for Substance Abuse Treatment, Cognitive-Behavioral (ICD-10-PCS; principal; 2016-09-28)
DX: F11.23 Opioid dependence with withdrawal (principal); F10.20 Alcohol dependence, uncomplicated; F12.20 Cannabis dependence, uncomplicated; F17.210 Nicotine dependence, cigarettes, uncomplicated; F33.9 Major depressive disorder, recurrent, unspecified
CPT/HCPCS: 36415; 87389